=== PATIENT | male | born 1985 | race African-American/Black ===

== ENCOUNTER 2017-01-01 16:47 | Emergency (ER) | payer SELFPAY ==
[~2017-01-01] VITALS: Ht 188 cm; Wt 109.1 kg
[~2017-01-01 16:47] MED LIST: ALBU8.5H3 IH
[2017-01-01] MEDS ORDERED: GABA-529 PO (16:55)
[2017-01-01] MEDS ORDERED: SODIUM CHLORIDE 0.9% 100 ML ONE (17:07)
[2017-01-01] MEDS ORDERED: IOVERSOL 350 MG/ML 150 ML VIAL ONE (17:07)
[2017-01-01] MEDS ORDERED: PERTUSS(ACELL),DIPH,TET VAC/PF 0.5 ML VIAL IM ONE ×2 (17:15)
[2017-01-01] MEDS ORDERED: CeFAZolin 1 GM/DEXTROSE 50 ML IV ONE ×2 (17:15)
[2017-01-01] MEDS ORDERED: MORPHINE SULFATE 2 MG/ML SYRINGE IVP ONE (17:15)
[2017-01-01 17:27] LABS: BASOPHILS % (AUTO) 0.6 % (0.0-2.0); EOSINOPHILS % (AUTO) 1.3 % (1.0-6.0); HEMATOCRIT 41.5 % (41-53); HEMOGLOBIN 14.2 g/dL (13.5-17.5); LYMPHOCYTES # (AUTO) 1.7 K/uL (1.0-4.8); LYMPHOCYTES % (AUTO) 22.4 % (22.0-44.0); MEAN CORPUSCULAR HEMOGLOBIN 30.4 pg (26.0-34.0); MEAN CORPUSCULAR HGB CONC 34.2 G/dL (31.0-37.0); MEAN CORPUSCULAR VOLUME 89 fL (80-100); MONOCYTES # (AUTO) 0.8 K/uL (0.1-1.0); MONOCYTES % (AUTO) 11.1 % (2.0-9.0); NEUTROPHILS # (AUTO) 4.9 K/uL (1.8-7.7); NEUTROPHILS % (AUTO) 64.6 % (40.0-70.0); PLATELET COUNT (AUTO) 295 K/uL (150-450); RED BLOOD CELL COUNT(AUTO) 4.67 MIL/uL (4.50-5.90); RED CELL DISTRIBUTION WIDTH 12.7 % (11.5-14.5); WHITE BLOOD COUNT (AUTO) 7.6 K/uL (4.5-11.0)
[2017-01-01 17:36] LABS: ANION GAP 11 mmol/L (8-16); CALCIUM, TOTAL 9.1 mg/dL (8.8-10.5); CARBON DIOXIDE 23 mmol/L (22-29); CHLORIDE 103 mmol/L (98-107); CREATININE 1.01 mg/dL (0.60-1.30); GLOMERULAR FILTR. RATE CALC > 60 mL/min (>60); POTASSIUM 3.5 mmol/L (3.5-5.1); SODIUM SERUM 137 mmol/L (136-145); UREA NITROGEN, BLOOD 13 mg/dL (7-18)
[2017-01-01 17:42] LABS: ALANINE AMINOTRANSFERASE 30 U/L (12-78); ASPARTATE AMINOTRANSFERASE 32 U/L (15-37); BILIRUBIN,TOTAL 0.3 mg/dL (0.1-1.0); TOTAL PROTEIN, SERUM 7.7 g/dL (6.4-8.2)
[2017-01-01 18:10] LABS: LACTIC ACID 2.3 mmol/L (0.4-2.0)
[2017-01-01 19:21] LABS: REFLEX LACTIC ACID? YES YES
[2017-01-01 19:39] VITALS: BP 138/87
== END 2017-01-01 19:40 | disposition home or self-care (01) ==
LOC: EMS 16:49
DX: S31.119A Laceration without foreign body of abdominal wall, unspecified quadrant without penetration into peritoneal cavity, initial encounter (principal); S00.93XA Contusion of unspecified part of head, initial encounter; J45.909 Unspecified asthma, uncomplicated; F15.90 Other stimulant use, unspecified, uncomplicated; F17.210 Nicotine dependence, cigarettes, uncomplicated; W27.8XXA Contact with other nonpowered hand tool, initial encounter; Y93.89 Activity, other specified; Y92.89 Other specified places as the place of occurrence of the external cause; Y99.8 Other external cause status
CPT/HCPCS: 36415; 74177; 80053; 80307; 83605; 85025; 85610; 86850; 86900; 86901; 90471; 90715; 96365; 96375; 99291; G0480; J0690; J2270; J7050; Q9967

== ENCOUNTER 2017-03-20 15:52 | Emergency (ER) | payer MEDICAID ==
[~2017-03-20] VITALS: Ht 190.5 cm; Wt 109.1 kg
[~2017-03-20 15:52] MED LIST changes: +GABA-529 PO
[2017-03-20] MEDS ORDERED: PROPARACAINE HCL 0.5% 15 ML OPHTHALMIC SOLUTION OD ONE (17:00)
[2017-03-20] MEDS ORDERED: FLUORESCEIN SODIUM 1 MG STRIP OD ONE (17:00)
[2017-03-20] MEDS ORDERED: ERYTHROMYCIN 0.5% 3.5 GM TUBE OPHTHALMIC OINTMENT OD ONE (18:00)
[2017-03-20 18:29] VITALS: BP 129/81
== END 2017-03-20 18:43 | disposition home or self-care (01) ==
LOC: EMS 15:55
DX: S05.01XA Injury of conjunctiva and corneal abrasion without foreign body, right eye, initial encounter (principal); F17.210 Nicotine dependence, cigarettes, uncomplicated; J45.909 Unspecified asthma, uncomplicated; F15.90 Other stimulant use, unspecified, uncomplicated; X58.XXXA Exposure to other specified factors, initial encounter; Y93.89 Activity, other specified; Y92.89 Other specified places as the place of occurrence of the external cause; Y99.8 Other external cause status
CPT/HCPCS: 99284

== ENCOUNTER 2021-07-12 02:39 | Emergency (ER) | payer MEDICAID, OTHER ==
[~2021-07-12] VITALS: Ht 190.5 cm; Wt 84.5 kg
[~2021-07-12 02:39] MED LIST changes: +GABA-1216 PO; -GABA-529 PO
[2021-07-12 02:42] VITALS: BP 142/84
[2021-07-12 02:59] LABS: APPEARANCE,URINE CLEAR (CLEAR); BILIRUBIN,URINE NEGATIVE (NEGATIVE); GLUCOSE, URINE (UA) NEGATIVE (NEGATIVE); KETONES,URINE NEGATIVE (NEGATIVE); LEUKOCYTE ESTERASE ,URINE NEGATIVE (NEGATIVE); NITRATE,URINE NEGATIVE (NEGATIVE); OCCULT BLOOD,URINE NEGATIVE (NEGATIVE); PH,URINE 5.5 (5.0-8.0); PROTEIN,URINE NEGATIVE (NEGATIVE); SPECIFIC GRAVITIY, URINE 1.026 (1.003-1.030); UROBILINOGEN,URINE <=1.0 mg/dL (<=1.0)
[2021-07-12] MEDS ORDERED: DOXY-354 PO (03:28)
[2021-07-12] MEDS ORDERED: DOXYCYCLINE HYCLATE 100 MG TABLET PO ONE (03:30)
[2021-07-12] MEDS ORDERED: LIDOCAINE/PF 1% 2 ML VIAL IM ONE (03:30)
[2021-07-12] MEDS ORDERED: CefTRIAXone SODIUM 1 GM/VIAL IM ONE (03:30)
== END 2021-07-12 03:47 | disposition home or self-care (01) ==
LOC: EMS 02:41
DX: N34.2 Other urethritis (principal); Z79.899 Other long term (current) drug therapy
CPT/HCPCS: 81003; 87491; 87591; 96372; 99283; J0696; J3490

== ENCOUNTER 2021-09-14 01:19 | Emergency (ER) | payer OTHER ==
[~2021-09-14] VITALS: Ht 188 cm; Wt 100.0 kg
[~2021-09-14 01:19] MED LIST changes: +DOXY-354 PO
[2021-09-14] MEDS ORDERED: PRED1 PO ×2 (01:31→02:49)
[2021-09-14] MEDS ORDERED: 0.9% SODIUM CHLORIDE 15 ML NEB SOLUTION NEB ONE (01:44)
[2021-09-14] MEDS ORDERED: ALBUTEROL SULFATE 5 MG/ML 20 ML NEB SOLN [BULK] NEB ONE (01:45)
[2021-09-14] MEDS ORDERED: IPRATROPIUM BROMIDE 0.5 MG/2.5 ML NEB SOLUTION NEB ONE (01:45)
[2021-09-14 01:47] LABS: COVID AG,FIA SOURCE NASAL SWAB
[2021-09-14 02:36] VITALS: BP 135/92
[2021-09-14] MEDS ORDERED: ALBUTEROL SULFATE HFA 90 MCG/PUFF 8 GM INHALER IH ONE ×2 (02:45)
[2021-09-14] MEDS ORDERED: PredniSONE 20 MG TABLET PO ONE (02:45)
== END 2021-09-14 03:04 | disposition home or self-care (01) ==
LOC: EMS 01:23
DX: J45.901 Unspecified asthma with (acute) exacerbation (principal); F41.9 Anxiety disorder, unspecified; F31.9 Bipolar disorder, unspecified; F15.90 Other stimulant use, unspecified, uncomplicated; F17.210 Nicotine dependence, cigarettes, uncomplicated; Z20.822 Contact with and (suspected) exposure to COVID-19
CPT/HCPCS: 87426; 94640; 99283; J7512; 94644; 99285; J3535

== ENCOUNTER 2023-01-02 16:27 | Emergency (ER) | payer OTHER ==
[~2023-01-02] VITALS: Ht 188 cm; Wt 86.4 kg
[~2023-01-02 16:27] MED LIST changes: +PRED1 PO
[2023-01-02 16:32] VITALS: TEMP 98.6
[2023-01-02] MEDS ORDERED: NEBULIZER SOLUTION PO (16:32)
[2023-01-02] MEDS ORDERED: GABA-1181 PO (16:32)
[2023-01-02] MEDS ORDERED: AMOXICILLIN TRIHYDRATE 250 MG CAPSULE PO ONE (17:15)
[2023-01-02] MEDS ORDERED: AMOX250C4 PO (17:17)
[2023-01-02 17:50] VITALS: BP 132/74; PULSE 95; RESP 18
== END 2023-01-02 18:09 | disposition home or self-care (01) ==
LOC: EMS 16:27
DX: K02.9 Dental caries, unspecified (principal); J45.909 Unspecified asthma, uncomplicated; F31.9 Bipolar disorder, unspecified; F17.210 Nicotine dependence, cigarettes, uncomplicated; F15.90 Other stimulant use, unspecified, uncomplicated; Z98.890 Other specified postprocedural states
CPT/HCPCS: 99283